=== PATIENT | male | born 1970 | race Caucasian/White ===

== ENCOUNTER 2025-08-26 20:56 | Inpatient (IN) | payer OTHER, SELFPAY ==
[2025-08-26 21:32] VITALS: BP 131/82; PULSE 65; RESP 18; TEMP 37.2; O2SAT 98
[2025-08-26 22:05] VITALS: BMI 23.6
--- NOTE | 2025-08-27 06:04 | PC.ADMIT ---
Addendum entered by Aydee Frye RN 08/27/25 06:06: Dx: MDD, cocaine use d/o Original Note: Pt is a 55 year old male admitted to M3 after referral from [facility]. Arrived on unit at 2119. Legal status: CV. Medical issues: None identified. Substance use: Pt reports using crack cocaine, fentanyl and marijuana daily; last use of crack and marijuana were before going to the ED on 08/25/25. He is unsure of his last use of fentanyl. Pt reports that he had been on methadone when recently at [facility] (dates unknown), however has not been on it since. CHACKO +marijuana and cocaine.? Precipitant: Pt self-presented to the ED with ? chest pain after being tased when smoking crack, causing heart palpitations. He also reported SI with a plan to OD on fentanyl. Pt reported that he has a hx of 56 felonies and has spent 38 years in longterm. He stated ?I?ve spent most of my life in longterm. Every time I get out my only desire is to get high?, ?I have no skills and don?t know how to do anything because I was incarcerated for so long?. He endorsed an increase in depression after being released from longterm and not having the skills to function effectively in society. Pt is also homeless and has eaten or slept in several days. He does not have any current providers and does not take any medications. He reports not having any family or support system. Per crisis eval, pt does have a hx of experiencing trauma, however he declined to further elaborate.? Mental status: Upon approval to the unit pt was a&o x4, pleasant and appropriate with a broad, though depressed mood and congruent affect. He continues to endorse depression, however denies SI/HI/AH/VH. Thought process is logical and organized with no evidence of perceptual disturbance, appropriate eye contact maintained throughout assessment. He reports not eating/sleeping in about 4 days. Pt declined to sign legals as he wanted to go to bed, however was cooperative with changeover answering assessment questions. Skin check unremarkable.? Pt?s goal of admission is to ?show me how to live?.
[2025-08-27 08:00] VITALS: BP 127/82; PULSE 60; RESP 20; TEMP 36.8; O2SAT 98
--- NOTE | 2025-08-27 08:13 | HO.PM.IMCN ---
History of Present Illness Data of Consult Service Date: 08/27/25 Primary Care Provider: Dawna Lee NP HPI Reason for consult: Medical consult 55-year-old male with a history of depression, polysubstance use, PTSD, recent incarceration, crack cocaine use, IUD on methadone which he took himself off. Presented to the ED at [facility] with suicidal ideation. Patient reported chest pain and palpitation due to being tased by the police. This is resolved. Patient's lab work was within normal limits his troponins were flat. Chest x-ray was negative. EKG was within normal limits. On exam patient denies any medical concerns. Expresses distress over years of incarceration, reports that he has nothing. Denies any shortness of breath, chest pain, abdominal pain or any other concerning symptoms. Review of Systems Review of Systems: Denies any shortness of breath, chest pain, palpitations, headaches, dysuria, abdominal pain or discomfort, nausea, vomiting or diarrhea. Denies chills, body aches, muscle aches, fatigue or weight loss. PMFSH Social History Household Members: None Housing: Homeless Do you presently have visiting nurse or other home services: No Patient Tobacco Use Status: Current everyday Tobacco user Tobacco use type: Cigarette Cigarette Packs Per Day: 1 Cigarettes Per Day: 20.0 Years Smoked: several Smoked in Last 30 Days: Yes e-Cigarette/Vaping Use: Never Used Patient Interested in Nicotine Replacement: No Patient Given Instructions on How to Stop Smoking: No (pt not interested at this time) Currently Displaying Signs/Symptoms of Drug Intoxication Withdrawal: No Do you feel safe in your current relationship?: No Current Relationship Is there a partner from a previous relationship who is making you feel unsafe now?: No Are you made to feel afraid or neglected: No Spiritual Healthcare Practices: none noted at this time Orthodoxy Healthcare Practices: none noted at this time Cultural Healthcare Practices: none noted at this time Advance Directives: No Advance Directives Information Provided: No Do you have thoughts of harming others: None Do you have a plan to hurt others: No Plan Recently lost weight without trying: Unsure Eating poorly because of decreased appetite: Yes Nutrition Risks: No Nutritional Risk Poor oral hygiene: Yes Meds Allergies Allergy/AdvReac Type Severity Reaction Status Date / Time No Known Allergies Allergy Verified 08/26/25 21:08 Active Medications: Current Medications Acetaminophen (Acetaminophen 325 Mg Tablet) 650 mg PO Q6H PRN PRN Reason: Headache/Pain, Scale 1-10 Al Hydroxide/Mg Hydroxide (Magnesium Hydrox/Alum Hydrox 30 Ml Oral.Susp) 30 ml PO Q6H PRN PRN Reason: Heartburn/Nausea Hydroxyzine HCl (Hydroxyzine Hcl 25 Mg Tablet) 25 mg PO Q6H PRN PRN Reason: mild anxiety Last Admin: 08/26/25 21:57 Dose: 25 mg Magnesium Hydroxide (Milk Of Magnesia 30 Ml Oral.Susp) 30 ml PO DAILY PRN PRN Reason: Constipation Nicotine Polacrilex (Nicotine Polacrilex 2 Mg Gum) 4 mg BUCCAL Q2H PRN PRN Reason: Nicotine Cravings Trazodone HCl (Trazodone Hcl 50 Mg Tablet) 50 mg PO BEDTIME MRX1 PRN PRN Reason: Insomnia Last Admin: 08/26/25 21:57 Dose: 50 mg Home Medications ?Medication ?Instructions ?Recorded ?Confirmed ?Last Taken ?Type No Known Home Meds 08/27/25 08/27/25 Unknown History Physical Exam Vital Signs and Narrative: Vital Signs: Last Vital Signs Temp 98.3 F 08/27/25 08:00 Pulse 60 08/27/25 08:00 Resp 20 08/27/25 08:00 BP 127/82 08/27/25 08:00 Pulse Ox 98 08/27/25 08:00 O2 Del Method Room Air 08/27/25 08:00 BMI result Body Mass Index 23.6 CONST: Alert and oriented, in NAD. Thin HEENT: Normocephalic, atraumatic, MMM, Eyes clear, Neck supple RESP: Lungs clear, RRR even and regular HEART:,RRR, S1, S2. No edema GI:Abdomen Soft NT, ND. + BS times four :Deferred SKIN: Warm dry and intact, no visible lesions or rashes NEURO:CN II-XII Intact bilaterally, Sensation intact. Speech clear PSYCH: Normal affect Assessment and Plan (1) Polysubstance (excluding opioids) dependence: Status: Acute Plan 55-year-old male admitted to inpatient psych after presenting to the ED with suicidal ideation. PTSD/depression/substance use disorder/complicated by years of incarceration Treatment per psychiatric team Addiction medicine consult Thank you for allowing me to participate in the care of this patient. Will follow with you, please notify medical provider with any changes in condition or concerns.
[2025-08-27 09:23] LABS: Cholesterol 208 mg/dL (<200); HDL Cholesterol 41 mg/dL (>40); Magnesium 2.2 mg/dL (1.6-2.6); Triglycerides 93 mg/dL (<150)
[2025-08-27 09:27] LABS: Free T4 (Free Thyroxine) 0.95 ng/dL (0.71-1.85); Thyroid Stimulating Hormone 1.03 uIU/mL (0.32-4.0)
[2025-08-27 09:37] LABS: Folate 13.5 ng/mL (> or = 4.0); Vitamin B12 363 pg/mL (200-900)
--- NOTE | 2025-08-27 09:48 | P.HPPS_ITS ---
HPI Date of Service: 08/27/25 Chief Complaint: Recurrent Major disorder,si,crack/cocaine use dis Sources of Information: patient interviewed, chart reviewed and crisis/core team assessment reviewed HPI Subjective Notes: Conditional Voluntary Narrative: Mr. Lance is a 55 y/o M with h/o depression, PTSD, crack cocaine use d/o, opioid use d/o (recently took self off methadone) and cannabis use who presented to the [facility] ED after being tased by police in setting of crack-cocaine intox. He was admitted to due to depession and SI. Pt reports that he has been incarcerated for a total of 38 yrs for 56 felonies. His first incarceration was from [age] y/o. He reports that leaving intermediate was stressful since he doesn't know how to function in society. He is homeless and denies having any support from family or friends. He had planned to go to [facility] directly from [facility], where he was recently admitted. He reports that the psychiatrist wasn't going to discharge him once his 3-day note and pt called an attny and was ultimately d/c'd late in the afternoon. He didn't think he'd be able to get into the [facility] at that time of day and therefore went on the streets and used crack for a few days. He reports that he felt depressed and suicidal after using/being on the streets and not sleeping for 4 days. Pt denies current SI. He is future oriented and plans to stay at the [facility] program x 6 months Psychiatric ROS is negative for marie, psychosis, violent ideation Past Psychiatric History: No outpatient mental health providers 1 recent inpt psych admission at [facility] h/o sujicide attempt earlier this month by overdosing on fentanyl No current psychotropic meds Medical Evaluation Reviewed: Yes PMF Family History: None known Social History: Pt is single, has no children. Raised in [place] by his parents, has 3 older siblings but has no contact with them. Unsure if his parents are alive. Incarcerated for much of his life. Substance History: crack cocaine- last used last night fentanyl- can't recall last time used was on methadone but stopped cold turkey 2 wks ago in so that he can go to the [facility] Trauma History: Endorses trauma hx Diagnostics Vital Signs (24Hr): Vital Signs - 24 hr 08/26/25 21:32 08/27/25 08:00 Temperature 99.0 F 98.3 F Pulse Rate 65 60 Respiratory Rate 18 20 Blood Pressure 131/82 127/82 Pulse Oximetry 98 98 Oxygen Delivery Method Room Air Room Air BMI result Body Mass Index 23.6 Labs Labs: Laboratory Results - last 48 hr 08/27/25 07:46 Estimat Average Glucose 114 Hemoglobin A1c % 5.6 Magnesium 2.2 Triglycerides 93 Cholesterol 208 H LDL Cholesterol, Calc 149 H HDL Cholesterol 41 Vitamin B12 363 Folate 13.5 TSH 1.03 Free T4 0.95 Meds/Allergies Meds Home Medications ?Medication ?Instructions ?Recorded ?Confirmed ?Type No Known Home Meds 08/27/25 08/27/25 Hi story Allergies Allergies Allergy/AdvReac Type Severity Reaction Status Date / Time No Known Allergies Allergy Verified 08/26/25 21:08 Mental Status Exam Mental Status Exam Narrative: Appearance: Casually dressed. Grooming/hygiene wnl. Good eye contact Attitude:Cooperative Speech: Fluent and wnl in regard to volume, tone, prosody Motor activity: Calm and without any tics, tremors or dyskinesias. Steady gait Mood: I was feeling bummed but feeling better now since he can to [facility] Affect: appropriate, reactive, generally bright Thought process: goal directed and without evidence of formal thought disorder Thought content: as noted above. Future oriented Perception: Denies AH/VH and does not appear to respond to internal stimuli Alert/oriented in all spheres Cognition grossly intact Insight: intact Judgment: fair Assessment & Plan Assessment & Plan (1) Depression: Status: Acute Code(s): F32.A - Depression, unspecified (2) PTSD (post-traumatic stress disorder): Status: Acute Code(s): F43.10 - Post-traumatic stress disorder, unspecified (3) Cocaine use disorder: Status: Acute Code(s): F14.10 - Cocaine abuse, uncomplicated (4) Opioid use disorder: Status: Acute Code(s): F11.90 - Opioid use, unspecified, uncomplicated Plan Mr. Lance is a 55 y/o M with h/o depression, PTSD, crack cocaine use d/o, opioid use d/o (recently took self off methadone) and cannabis use who presented to the [facility] ED after being tased by police in setting of crack-cocaine intox. He was admitted to M3 due to depession and SI. Pt was able to make arrangements to go to [facility] tomorrow, which he feels will be helpful for him to get back on his feet, after spending over half his life in intermediate. He denies current SI. Treatment Plan: Admitted to M3 for safety and stabilization On CV 15 min safety checks VS per unit standard Medical H&P done by hospitalist Pt has trazodone ordered as a prn for insomnia but doesn't plan to take it tonight since it made him groggy this am He declines this marketing copywriter's offer to rx any other meds for him D/C planning-- [facility] Patient educated on: diagnosis, medication risk/benefits and therapeutic strategies Informed Consent: understands Reason for continued inpatient stay Substantial Risk for: med/psych decompensation Statement Statement: I have reviewed the history and physical and performed a pertinent examination on my patient. No changes have occurred unless specified. If the History and Physical was not performed prior to admission, the Hospitalist's service will be consulted for completing the admission physical. Time Spent With Patient Time: Total time managing care of this patient today __60__ minutes.
[2025-08-27 20:58] VITALS: RESP 16
[2025-08-28 07:00] VITALS: BMI 22.7
[2025-08-28 07:57] VITALS: BP 131/68; PULSE 62; RESP 18; TEMP 36.8; O2SAT 97
--- NOTE | 2025-08-28 15:38 | P.DS_ITS ---
DS: Providers Provider Date of Service: 08/28/25 Date of admission: 08/26/25 20:56 Date of discharge: 08/28/25 Primary care physician: Dawna Lee NP Attending physician on admission: Rhonda Ortiz Consults: 08/26/25 21:15 Consult to Hospitalist Routine Comment: Consulting Provider: [facility] Reason For Exam: Transfer pt 08/27/25 13:10 Addiction Medicine Provider Routine Consulting Provider: Addiction Covering Reason for consultation: Polysubstance use Attending physician on discharge: Rhonda Ortiz DS: Diagnosis Discharge Diagnosis (1) Depression: Status: Acute (2) PTSD (post-traumatic stress disorder): Status: Acute (3) Cocaine use disorder: Status: Acute (4) Opioid use disorder: Status: Acute DS: Medications Discharge Medications Home Medications: Home Medications ?Medication ?Instructions ?Recorded ?Confirmed No Known Home Meds 08/27/25 08/27/25 Mental Status Exam Mental Status Exam Narrative: Appearance: Casually dressed. Grooming/hygiene wnl. Good eye contact Attitude:Cooperative Speech: Fluent and wnl in regard to volume, tone, prosody Motor activity: Calm and without any tics, tremors or dyskinesias. Steady gait Mood: better Affect: appropriate, reactive, generally bright Thought process: goal directed and without evidence of formal thought disorder Thought content: Denies SI/violent ideation. Future oriented Perception: Denies AH/VH and does not appear to respond to internal stimuli Alert/oriented in all spheres Cognition grossly intact Insight: intact Judgment: fair DS: Summary Hospital Course Hospital Course: Mr. Lance is a 55 y/o M with h/o depression, PTSD, crack cocaine use d/o, opioid use d/o (recently took self off methadone) and cannabis use who presented to the [facility] after being tased by police in setting of crack-cocaine intox. He was admitted to M3 due to depession and SI. Pt reports that he has been incarcerated for a total of 38 yrs for 56 felonies. His first incarceration was from [age] y/o. He reports that leaving alf was stressful since he doesn't know how to function in society. He is homeless and denies having any support from family or friends. He had planned to go [facility] from [facility], where he was recently admitted. He reports that the psychiatrist wasn't going to discharge him once his 3-day note and pt called an attny and was ultimately d/c'd late in the afternoon. He didn't think he'd be able to get into the [facility] at that time of day and therefore went on the streets and used crack for a few days. He reports that he felt depressed and suicidal after using/being on the streets and not sleeping for 4 days. Pt denies current SI. He is future oriented and plans to stay at the [facility] program x 6 months Psychiatric ROS is negative for marie, psychosis, violent ideation Past Psychiatric History: No outpatient mental health providers 1 recent inpt psych admission at [facility] h/o sujicide attempt earlier this month by overdosing on fentanyl No current psychotropic meds Treatment Plan: Admitted to M3 for safety and stabilization On CV 15 min safety checks VS per unit standard Medical H&P done by hospitalist Pt has trazodone ordered as a prn for insomnia but doesn't plan to take it tonight since it made him groggy this am He declines this freelance copywriter's offer to rx any other meds for him Pt was able to make arrangements to return to the [facility] on 08/28, which he felt would be helpful for him to get back on his feet, after spending over half his life in alf. He denied SI, violent ideation, AH/VH and was d/c'd on 08/28 Time Spent with Patient Time attestation: Total time managing care of this patient today ____ minutes. Discharge Plan Discharge Anticipated Discharge Date/Time: 08/28/25 10:00 Patient Disposition: Prison Discharge Diagnosis: Depressive disorder, unspecified (r/o MDD vs substance induced depressive disorder) Cocaine use disorder Posttraumatic stress disorder Opioid use disorder Referrals: Dawna Lee NP [Primary Care Provider, Internal Medicine] - 1 Week Discharge Medications: No Action No Known Home Meds Discharge Orders: Discharge Order (Routine); Ordered 08/28/25 Ordered By: Rhonda Ortiz Stand Alone Forms: Patient Portal Discharge page, Community Support Print Language: Syrian Care Plan Goals: Maintain safe behaviors Practice coping skills Take medications as prescribed Continue to pursue sobriety Maintain regular follow-ups with your outpatient providers Health Concerns: Depression Substance use Plan of Treatment: Follow up with your psychiatric provider, PCP and other outpatient providers Take your medication as prescribed Assessment: Risk assessment at the time of discharge: Patient was interviewed on the day of discharge and found to be fully oriented, without any SI or violent ideation. Pt has improved insight and judgment and plans to continue treatment Pt is not at imminent risk of harm to self or others and has a safety plan that includes presenting to the closest ER or calling 911 if feeling unsafe. Pt has been observed closely by unit staff and has not engaged in any behaviors that suggest dangerous to self or others and has demonstrated appropriate bheaviors and impulse control. Discharge Date/Time: 08/28/25 09:50
== END 2025-08-28 09:50 | disposition home or self-care (01) | DRG 754 ==
PROVIDERS: Admitting Provider Clinical Nurse Specialist Psychiatric/Mental Health, Adult; PCP Nurse Practitioner Family; Visit Provider Clinical Nurse Specialist Psychiatric/Mental Health, Adult
DX: F32.A Depression, unspecified (principal); Z91.128 Patient's intentional underdosing of medication regimen for other reason; F11.20 Opioid dependence, uncomplicated; F17.210 Nicotine dependence, cigarettes, uncomplicated; Z71.6 Tobacco abuse counseling; F43.10 Post-traumatic stress disorder, unspecified; F14.10 Cocaine abuse, uncomplicated; T40.3X6A Underdosing of methadone, initial encounter; Z59.02 Unsheltered homelessness
CPT/HCPCS: 36415; 80061; 82607; 82746; 83036; 83735; 84439; 84443

== ENCOUNTER → 2025-08-26 20:56 | Outpatient (BNV) | payer OTHER, SELFPAY | PROVIDERS: Admitting Provider Clinical Nurse Specialist Psychiatric/Mental Health, Adult; PCP Nurse Practitioner Family; Visit Provider Psychiatry & Neurology Psychiatry | DX: F33.2 Major depressive disorder, recurrent severe without psychotic features (principal); F14.10 Cocaine abuse, uncomplicated; F11.90 Opioid use, unspecified, uncomplicated; F43.11 Post-traumatic stress disorder, acute | CPT/HCPCS: 99231; 99233 ==

== ENCOUNTER → 2025-08-26 20:56 | Outpatient (BNV) | payer MEDICAID, SELFPAY | PROVIDERS: Admitting Provider Clinical Nurse Specialist Psychiatric/Mental Health, Adult; PCP Nurse Practitioner Family; Visit Provider Nurse Practitioner Family | DX: Z00.8 Encounter for other general examination (principal) | CPT/HCPCS: 99499 ==